=== PATIENT | male | born 1980 | race Caucasian/White ===

== ENCOUNTER 2022-10-15 02:08 | Emergency (ER) | payer OTHER ==
--- NOTE | 2022-10-15 02:48 | ED Physician Documentation ---
PD HPI HEADACHE - Stated complaint Stated Complaint: HEADACHE 3DAYS - Chief complaint Chief Complaint: Heent - History obtained from History obtained from: Patient - History of Present Illness Worst headache ever?: No: Worst headache ever? Location: Back, Right, Left Quality: Aching Associated symptoms: Nausea, Vomiting. No: Fever, Stiff neck, Weakness, Numbness, Eye pain, Vision changes Improved by: Rest, Dark room, Quiet Worsened by: Light, Noise Similar symptoms before: Diagnosis (migraine headache) - Additional information Additional information: HPI from patient. Patient c/o migraine headache x 3 days, gradual onset bilaterally across the posterior upper neck. Denies trauma although he things this might be temporally related to some recent chiropractic work he had undergone. He c/o nausea, vomiti ng. Pain is worse with light, talking/noise. He says there are many features similar to previous migraine headaches although this is a more intense, persistent headache, and this started in neck and has spread to involve bilateral parietal area and right retro-orbital area. He says he has been diagnosed with migraine headache, many years ago, although he does not have migraine-specific medication at home. Review of Systems Constitutional: denies: Fever, Chills, Myalgias, Sweats Eyes: reports: Photophobia. denies: Loss of vision, Decreased vision Cardiac: reports: Reviewed and negative Respiratory: reports: Reviewed and negative GI: reports: Nausea, Vomiting. denies: Abdominal Pain Musculoskeletal: denies: Neck pain, Extremity pain Neurologic: reports: Headache. denies: Focal weakness, Numbness, Confused, Altered mental status, Head injury PD PAST MEDICAL HISTORY - Past Medical History Past Medical History: Yes Neuro: Migraines - Past Surgical History Past Surgical History: No - Present Medications Home Medications: Ambulatory Orders Medication Instructions Recorded Confirmed Lisinopril [Zestril] 10 mg PO DAILY #30 tablet 10/15/22 Ondansetron Odt [Zofran] 4 mg TL Q6H PRN #14 tablet 10/15/22 Oxycodone HCl/Acetaminophen 1 - 2 each PO Q6H PRN #14 tablet 10/15/22 [Percocet 5-325 mg Tablet] SUMAtriptan [Imitrex] 25 mg PO ONCE PRN #20 tablet 10/15/22 - Allergies Allergies/Adverse Reactions: Allergies Allergy/AdvReac Type Severity Reaction Status Date / Time No Known Drug Allergies Allergy Verified 10/15/22 02:25 - Living Situation Living Arrangement: reports: At home PD ED PE NORMAL - Vitals Vital signs reviewed: Yes - General General: Alert and oriented X 3, Well developed/nourished, Other (appears to be uncomfortable, covering his eyes with his hand to block out the light (I then turned out the overhead lights in his room for his comfort)) - HEENT HEENT: Atraumatic, PERRL, EOMI, Moist mucous membranes - Neck Neck: Supple, no meningeal sign - Cardiac Cardiac: RRR, No murmur - Respiratory Respiratory: No respiratory distress, Clear bilaterally - Abdomen Abdomen: Soft, Non tender - Neuro Neuro: Alert and oriented X 3, 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 Thus, no emergent testing, including imaging, performed tonvanesa. Given 1mg IM dilaudid and 25mg IM toradol. His blood pressures are particularly elevated on several consecutive readings in ED, including after he reports adequate pain relief with the above medications. He is thus given 0.2mg clonidine PO, followed by 10mg lisinopril. His blood pressures improved, and only mildly hypertensive readings prior to d/c. He reports excellent symptom relief and is comfortable going home. Prescriptions for percocet, PO imitrex, lisinopril, and zofran are all electronically prescribed to patient's pharmacy of choice. I am prescribing a short course of short-acting opioid pain medication for this patient. 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 I have discussed that the opioids are for short term therapy only, and will not be refilled from the ED. Departure - Departure Disposition: 01 Home, Self Care Clinical Impression: Headache Qualifiers: Headache type: unspecified Headache chronicity pattern: acute headache Intractability: not intractable Qualified Code(s): R51.9 - Headache, unspecified Condition: Good Instructions: ED Cephalgia Unspecified, ED Hypertension New Begin Tx Prescriptions: SUMAtriptan [Imitrex] 25 mg PO ONCE PRN #20 tablet PRN Reason: Headache Oxycodone HCl/Acetaminophen [Percocet 5-325 mg Tablet] 1 - 2 each PO Q6H PRN #14 tablet PRN Reason: pain Lisinopril [Zestril] 10 mg PO DAILY #30 tablet Ondansetron Odt [Zofran] 4 mg TL Q6H PRN #14 tablet PRN Reason: Nausea / Vomiting Comments: Your blood pressures were consistently very elevated during your emergency department stay. I have prescribed a blood pressure medication (lisinopril), but you need to follow-up with your primary care provider for reevaluation of your blood pressure. If, on follow-up, it is determined that you will need to continue with the blood pressure medication, your primary care provider can provide you with further prescriptions. I have also prescribed Imitrex, medication commonly used to treat migraine headaches. I have also prescribed Percocet, which is an opiate/narcotic pain medication which she can use for headaches if they do not respond to the Imitrex. Lastly, I have prescribed ondansetron, which is an antinausea medication. These prescriptions are all been electronically submitted to the [facility] pharmacy in [place]. I am prescribing a short course of narcotic pain medication for you. These are potentially dangerous and addictive medications that should be used carefully. These medications may constipate you. Take an jxax-lnx-neyrwia stool softener (docusate) twice daily with plenty of water while taking these medications. If you go 24 hours without a bowel movement, take [id number]-rlaumcy miralax, per package instructions. Do not drink or drive while taking these medications. If you received narcotic or sedating medications while in the emergency department, do not drive for 24 hours. Store this medication in a safe, secure place and out of reach of children. It is a violation of federal law to give or sell this medication to another person or to use in a manner other than prescribed. The ED will not refill narcotic prescriptions, including prescriptions lost or stolen. To dispose of unwanted medications: 1. [facility] at [address] in [place] has a medication drop box. They accept prescription medications (in pill form) Thursday through Thursday 9:00 a.m. to 5:00 p.m. 2. [facility] accepts prescription medications (in pill form only) for disposal year round. Call for more information. 3. Contact the [facility] for the next [facility] sponsored prescription drug collection event. , [phone], or [phone]; Forms: Activity restrictions Discharge Date/Time: 10/15/22 06:31
[2022-10-15] MEDS ORDERED: HYDROmorphone 1 MG/ML CARPUJECT IM STA (03:01)
[2022-10-15] MEDS ORDERED: PROMETHAZINE 25 MG/1 ML VIAL IM STA (03:01)
[2022-10-15] MEDS ORDERED: cloNIDine 0.1 MG TABLET PO STA (04:03)
[2022-10-15] MEDS ORDERED: oxyCODONE/ACET 5/325 Prepack 4 PO STA (05:00)
[2022-10-15] MEDS ORDERED: lisinopriL 5 MG TABLET PO STA (05:00)
[2022-10-15] MEDS ORDERED: ONDANSETRON ODT 4 MG Prepack 2 TL PRN (05:01)
[2022-10-15 06:26] VITALS: BP 135/90
== END 2022-10-15 06:31 | disposition home or self-care (01) ==
LOC: ED 02:08
DX: R51.9 Headache, unspecified (principal); I10 Essential (primary) hypertension
CPT/HCPCS: 96372; 99283; A9270; J1170

== ENCOUNTER 2023-07-16 03:18 | Emergency (ER) | payer OTHER ==
[2023-07-16 03:47] LABS: BILIRUBIN,URINE NEGATIVE (NEGATIVE); GLUCOSE, URINE (UA) NEGATIVE (NEGATIVE); KETONES,URINE (UA) NEGATIVE (NEGATIVE); LEUKOCYTE ESTERASE, URINE NEGATIVE (NEGATIVE); NITRITE,URINE NEGATIVE (NEGATIVE); OCCULT BLOOD,URINE MODERATE (NEGATIVE); PROTEIN,URINE NEGATIVE (NEGATIVE); UROBILINOGEN,URINE 0.2 (NORMAL) E.U./dL (NORMAL)
[2023-07-16] MEDS ORDERED: SODIUM CHLORIDE 0.9% 1,000 ML IV STA (03:54)
[2023-07-16 03:55] LABS: BASOPHILS # (AUTO) 0.1 10^3/uL (0.0-0.1); BASOPHILS % (AUTO) 0.9 %; EOSINOPHILS # (AUTO) 0.4 10^3/uL (0.0-0.7); EOSINOPHILS % (AUTO) 4.2 %; HCT - HEMATOCRIT 48.5 % (42.0-52.0); LYMPHOCYTES # (AUTO) 3.1 10^3/uL (1.5-3.5); LYMPHOCYTES % (AUTO) 29.6 %; MEAN PLATELET VOLUME 9.2 fL (7.4-11.4); MONOCYTES # (AUTO) 0.8 10^3/uL (0.0-1.0); NEUTROPHILS # (AUTO) 5.9 10^3/uL (1.5-6.6); PLT - PLATELET COUNT 225 10^3/uL (130-450); RED BLOOD COUNT 5.51 10^6/uL (4.70-6.10); RED CELL DISTRIBUTION WIDTH 12.9 % (12.0-15.0); WHITE BLOOD COUNT 10.3 x10^3/uL (4.8-10.8)
[2023-07-16] MEDS ORDERED: KETOROLAC 15 MG/ML VIAL IVP STA (03:55)
[2023-07-16] MEDS ORDERED: ONDANSETRON 4 MG/2 ML VIAL IVP STA (03:55)
--- NOTE | 2023-07-16 03:58 | ED Physician Documentation ---
History of Present Illness - Stated complaint Stated Complaint: ABD PX - Chief complaint Chief Complaint: Abd Pain - History obtained from History obtained from: Patient, Family () - Additonal information Additional information: 43yM with pmh kidney stones, htn, migraines, p/w sharp L flank pain intermittent since yesterday evening with associated nausea, now improved. denies urinary sx, fever, abdominal pain. Review of Systems Constitutional: denies: Fever, Chills Cardiac: denies: Chest pain / pressure Respiratory: denies: Dyspnea GI: reports: Nausea. denies: Abdominal Pain, Vomiting, Diarrhea : denies: Dysuria, Frequency, Hematuria Musculoskeletal: reports: Back pain PD PAST MEDICAL HISTORY - Past Medical History Past Medical History: Yes Cardiovascular: Hypertension Neuro: Migraines : Kidney stones - Past Surgical History Past Surgical History: No - Present Medications Home Medications: Ambulatory Orders Medication Instructions Recorded Confirmed Losartan Potassium 100 mg PO DAILY 07/16/23 07/16/23 Tizanidine HCl 1 - 2 tab PO TID PRN 07/16/23 07/16/23 - Allergies Allergies/Adverse Reactions: Allergies Allergy/AdvReac Type Severity Reaction Status Date / Time No Known Drug Allergies Allergy Verified 07/16/23 03:28 - Social History Does the pt smoke?: Yes Smoking Status: Current every day smoker Does the pt drink ETOH?: Yes ETOH Use: Liquor Does the pt have substance abuse?: No - Immunizations Immunizations are current?: Yes - POLST Patient has POLST: No PD ED PE NORMAL - Vitals Vital signs reviewed: Yes - General General: Alert and oriented X 3, No acute distress, Well developed/nourished - HEENT HEENT: Atraumatic, PERRL, EOMI - Neck Neck: Supple, no meningeal sign - Abdomen Abdomen: Non tender, Non distended - Back Back: Other (L CVA ttp) Results - Vitals Vitals: Vital Signs - 24 hr 07/16/23 07/16/23 07/16/23 03:24 03:36 04:20 Temperature 36.5 C Heart Rate 84 80 72 Respiratory 20 18 14 Rate Blood Pressure 171/93 H 165/94 H 155/97 H O2 Saturation 99 97 94 07/16/23 07/16/23 04:36 05:02 Temperature 36.8 C Heart Rate 72 73 Respiratory 16 18 Rate Blood Pressure 149/95 H 121/69 O2 Saturation 96 97 Oxygen O2 Source Room air - Labs Labs: Laboratory Tests 07/16/23 07/16/23 07/16/23 03:30 03:48 03:48 WBC 10.3 RBC 5.51 Hgb 16.0 Hct 48.5 MCV 88.0 MCH 29.0 MCHC 33.0 RDW 12.9 Plt Count 225 MPV 9.2 Neut # (Auto) 5.9 Lymph # (Auto) 3.1 Thayer # (Auto) 0.8 Eos # (Auto) 0.4 Baso # (Auto) 0.1 Absolute Nucleated RBC 0.00 Nucleated RBC % 0.0 Sodium 140 Potassium 4.1 Chloride 106 Carbon Dioxide 27 Anion Gap 7.0 BUN 18 Creatinine 1.2 Estimated GFR (MDRD) 67 L Glucose 104 Calcium 10.0 Total Bilirubin 0.3 AST 19 ALT 35 Alkaline Phosphatase 67 Total Protein 6.9 Albumin 4.3 Globulin 2.6 Albumin/Globulin Ratio 1.7 Lipase 74 Urine Color YELLOW Urine Clarity CLEAR Urine pH 6.0 Ur Specific [place] 1.010 Urine Protein NEGATIVE Urine Glucose (UA) NEGATIVE Urine Ketones NEGATIVE Urine Occult Blood MODERATE H Urine Nitrite NEGATIVE Urine Bilirubin NEGATIVE Urine Urobilinogen 0.2 (NORMAL) Ur Leukocyte Esterase NEGATIVE Urine RBC 6-10 H Urine WBC 0-3 Ur Squamous Epith Cells NONE SEEN Urine Bacteria None Seen Ur Microscopic Review INDICATED Urine Culture Comments NOT INDICATED PD Medical Decision Making - ED course ED course: 43yM presents with L flank pain X 1 day, which feel like prior kidney stones. cbc, abdominal panel, u/a ordered. IVF, zofran, toradol administered with relief of nausea and pain. There is blood in u/a, therefore will obtain CT AP to evaluate for stones. CTAP showed nonspecific perinephric stranding but no stones and no hydro. normal renal function. likely passed stone. plan to f/u outpatient urology. return precautions given. Departure - Departure Disposition: 01 Home, Self Care Clinical Impression: Hematuria, Flank pain Condition: Stable Instructions: ED Hematuria Follow-Up: Pete Lerma MD [Provider Admit Priv/Credential] - Comments: You were seen in the emergency department for flank pain and blood in the urine. Your ct didn't show any kidney stones, which means you may have passed a stone before your CT scan. Please follow-up with urology and return to the emergency department if you have any new or worsening symptoms or other concerns. Forms: PCP List
[2023-07-16 04:01] LABS: CLARITY,URINE CLEAR (CLEAR)
[2023-07-16 04:04] LABS: BACTERIA,URINE None Seen /HPF (None Seen); SQUAMOUS EPITHELIAL CELL,UR NONE SEEN (<= Few); WBC,URINE 0-3 /HPF (0-3)
[2023-07-16 04:25] LABS: ALBUMIN 4.3 g/dL (3.2-5.5); ALBUMIN/GLOBULIN RATIO 1.7 (1.0-2.2); BILIRUBIN,TOTAL 0.3 mg/dL (0.2-1.0); CREATININE 1.2 mg/dL (0.6-1.3); POTASSIUM 4.1 mmol/L (3.5-4.5); TOTAL PROTEIN 6.9 g/dL (6.4-8.9)
[2023-07-16 06:34] VITALS: BP 145/92; O2SAT 100
--- NOTE | 2023-07-16 08:19 | CT Report ---
PROCEDURE: Abdomen/Pelvis WO INDICATIONS: L flank pain TECHNIQUE: A CT scan of the abdomen and pelvis was performed without the use of intravenous contrast. Images we re recorded and evaluated at appropriate window settings. Reformats: coronal and sagittal. For radiat ion dose reduction, the following was used: automated exposure control, adjustment of mA and/or kV ac cording to patient size. COMPARISON: None. FINDINGS: Image quality: Excellent. Lung bases and heart: Basilar atelectasis. Small hiatal hernia. Liver: No contour-deforming mass. Mild hepatic steatosis. Gallbladder and biliary tree: Normal gallbladder. No biliary dilation. Spleen: No splenomegaly. Pancreas: No pancreatic ductal dilation. Adrenals: No adrenal nodule. Kidneys and ureters: No hydronephrosis. No renal cystic lesion which requires follow up. No solid mas s. Mild perinephric stranding bilaterally. Bowel and peritoneum: No bowel distension. No pathologic free fluid. There is a moderate amount of st ool in colon. Lymph nodes: No central or retroperitoneal adenopathy. Vessels: No infrarenal aortic aneurysm. PELVIS Reproductive organs: Unremarkable. Bladder: No wall thickness, accounting for underdistention. Pelvic lymph nodes: No pelvic adenopathy by size criteria. Bones: No aggressive osseous abnormality. Trace anterolisthesis of L5 on S1 secondary to bilateral L5 pars defect. A small sclerotic focus in the right acetabulum, likely a small bone island. Other: Small fat-containing left inguinal hernia. IMPRESSION: 1. No hydronephrosis or obstructing renal stone. 2. Mild perinephric stranding bilaterally, nonspecific. 3. Hepatic steatosis. 4. Bilateral L5 pars defect resulting in trace L5-S1 anterolisthesis. Findings are concordant with preliminary interpretation provided by [facility]. Reviewed by: Sony Jones MD on 07/16/2023 8:17 AM PST Approved by: Sony Jones MD on 07/16/2023 8:17 AM PST Station ID: [id number]
== END 2023-07-16 06:35 | disposition home or self-care (01) ==
LOC: ED 03:18
DX: R31.9 Hematuria, unspecified (principal); R10.9 Unspecified abdominal pain; I10 Essential (primary) hypertension; F17.200 Nicotine dependence, unspecified, uncomplicated
CPT/HCPCS: 36415; 80053; 81001; 81003; 83690; 85025; 87086; 96374; 96375; 99283